=== PATIENT | male | born 1955 | race Caucasian/White ===

== ENCOUNTER 2018-01-22 03:18 | Emergency (ER) | payer MEDICAID, OTHER ==
[2018-01-22] MEDS ORDERED: ASPIRIN CHEW 81 MG TABLET PO STA (03:28)
--- NOTE | 2018-01-22 03:32 | ED Physician Documentation ---
PD HPI CHEST PAIN - Stated complaint Stated Complaint: CHEST PAIN - Chief complaint Chief Complaint: Cardiac - History obtained from History obtained from: Patient - History of Present Illness Timing - onset: How many hours ago (3.5) Timing - onset during: Rest Timing - details: Abrupt onset, Intermittant Quality: Pressure, Aching Location: Left chest Radiation: Left upper extremity Worsened by: No: Exertion, Inspiration Associated symptoms: No: Shortness of air, Diaphoresis, Feeling faint / dizzy Similar symptoms before: No diagnosis Recently seen: Not recently seen - Additional information Additional information: patient is a 62 year old male with no significant past medical history who is presenting to the emergency department for chest pain. patient states that it started about 3.5 hours ago. Patient states that it started at rest. patient stated that it comes and goes on its own and denies any aggravating or alleviating factors. patient denies any exertional component to his pain. Review of Systems Constitutional: denies: Fever, Chills Eyes: reports: Reviewed and negative Ears: reports: Reviewed and negative Cardiac: reports: Chest pain / pressure. denies: Palpitations, Pedal edema, Calf pain Respiratory: denies: Dyspnea, Cough, Wheezing GI: denies: Nausea, Vomiting : reports: Reviewed and negative Skin: denies: Rash, Lesions Musculoskeletal: reports: Extremity pain. denies: Neck pain, Back pain Neurologic: denies: Near syncope, Syncope, Headache Immunocompromised: denies: Immunocompromised PD PAST MEDICAL HISTORY - Present Medications Home Medications: Ambulatory Orders Medication Instructions Recorded Confirmed Nitroglycerin 0.4 mg SL ONCE PRN #15 tab.subl 01/22/18 - Allergies Allergies/Adverse Reactions: Allergies Allergy/AdvReac Type Severity Reaction Status Date / Time No Known Drug Allergies Allergy Verified 01/22/18 03:26 PD ED PE NORMAL - Vitals Vital signs reviewed: Yes - General General: Alert and oriented X 3, No acute distress - HEENT HEENT: Atraumatic, PERRL - Neck Neck: No JVD - Cardiac Cardiac: RRR - Respiratory Respiratory: No respiratory distress - Abdomen Abdomen: Soft, Non tender, Non distended - Derm Derm: Normal color, Warm and dry, No rash - Extremities Extremities: No deformity, No edema - Neuro Neuro: Alert and oriented X 3, No motor deficit, Normal speech Eye Opening: Spontaneous Motor: Obeys Commands Verbal: Oriented GCS Score: 15 - Psych Psych: Normal mood Results - Vitals Vitals: Vital Signs - 24 hr 01/22/18 01/22/18 01/22/18 03:22 03:26 03:56 Temperature 36.0 C L Heart Rate 69 66 Respiratory 20 18 Rate Blood Pressure 162/106 H 157/101 H Blood Pressure 173/101 H [Left] Blood Pressure 162/106 H [Right] O2 Saturation 97 94 01/22/18 01/22/18 04:07 05:32 Temperature Heart Rate 74 55 L Respiratory 18 14 Rate Blood Pressure 130/95 H 119/86 H Blood Pressure [Left] Blood Pressure [Right] O2 Saturation 94 96 Oxygen O2 Source Room air - EKG (time done) 0325 Rate: Rate (enter#) (64) Rhythm: NSR [place]: Normal Intervals: Normal PA QRS: Poor R wave progression Compare to prior EKG: Old EKG unavailable 0516 Rate: Rate (enter#) (56) Rhythm: NSR [place]: Normal QRS: Poor R wave progression Compare to prior EKG: Unchanged from prior EKG - Labs Labs: Laboratory Tests 01/22/18 01/22/18 01/22/18 03:30 03:30 03:30 WBC 5.6 RBC 4.87 Hgb 15.0 Hct 42.5 MCV 87.3 MCH 30.9 MCHC 35.4 RDW 12.8 Plt Count 199 MPV 8.3 Neut # 3.1 Lymph # 1.7 Cassia # 0.5 Eos # 0.2 Baso # 0.0 Absolute Nucleated RBC 0.00 Nucleated RBC % 0.0 Sodium 137 Potassium 3.7 Chloride 103 Carbon Dioxide 25 Anion Gap 9.0 BUN 16 Creatinine 1.0 Estimated GFR (MDRD) 75 L Glucose 128 H Calcium 9.4 Total Bilirubin 0.8 AST 30 ALT 41 Alkaline Phosphatase 61 Troponin I < 0.04 B-Natriuretic Peptide Total Protein 8.0 Albumin 4.6 Globulin 3.4 Albumin/Globulin Ratio 1.4 Lipase 19 L 01/22/18 01/22/18 03:30 05:10 WBC RBC Hgb Hct MCV MCH MCHC RDW Plt Count MPV Neut # Lymph # Cassia # Eos # Baso # Absolute Nucleated RBC Nucleated RBC % Sodium Potassium Chloride Carbon Dioxide Anion Gap BUN Creatinine Estimated GFR (MDRD) Glucose Calcium Total Bilirubin AST ALT Alkaline Phosphatase Troponin I < 0.04 B-Natriuretic Peptide 6 Total Protein Albumin Globulin Albumin/Globulin Ratio Lipase - Rads (name of study) chest x-ray Radiology: Final report received (normal) PD MEDICAL DECISION MAKING - ED course Complexity details: reviewed old records, reviewed results, re-evaluated patient , considered differential, d/w patient ED course: Patient was seen and examined at bedside. ekg was performed and was normal sinus rhythm. IV access gained and labs were drawn. patient's original troponin was 0. Patient was treated with aspirin and one nitro. Patient chest x-ray showed no acute abnormalities. Patient's htn improved to 122/88. Patient 's repeat troponin and ekg remained stable. Patient's HEART score was 2. Patient required no further inpatient work up and was stable for discharge with outpatient follow up. Departure - Departure Disposition: 01 Home, Self Care Clinical Impression: Atypical chest pain Condition: Good Instructions: ED Chest Pain Atypical Unkn Cause Follow-Up: primary,care provider [Other] - Within 3 Days Prescriptions: Nitroglycerin 0.4 mg SL ONCE PRN #15 tab.subl PRN Reason: Blood Pressure Comments: Your diagnostics today were within normal limits. there is no significant abnormality on you ekg, blood work and chest x-ray. while these tests are good for ruling out an acute heart attack it is still only a snap shot in time. You will need to follow up with your doctor for an echo cardiogram and a stress test. You may return to the emergency department at any time for new, worsening or uncontrollable symptoms.
[2018-01-22 03:44] LABS: BASOPHILS % (AUTO) 0.6 %; EOSINOPHILS # (AUTO) 0.2 10^3/uL (0.0-0.7); EOSINOPHILS % (AUTO) 2.7 %; LYMPHOCYTES # (AUTO) 1.7 10^3/uL (1.5-3.5); LYMPHOCYTES % (AUTO) 31.1 %; MEAN CORPUSCULAR HEMOGLOBIN 30.9 pg (27.0-31.0); MEAN CORPUSCULAR HGB CONC 35.4 g/dL (32.0-36.0); MEAN CORPUSCULAR VOLUME 87.3 fL (80.0-94.0); MEAN PLATELET VOLUME 8.3 fL (7.4-11.4); MONOCYTES # (AUTO) 0.5 10^3/uL (0.0-1.0); MONOCYTES % (AUTO) 9.8 %; NEUTROPHILS # (AUTO) 3.1 10^3/uL (1.5-6.6); NEUTROPHILS % (AUTO) 55.8 %; PLT - PLATELET COUNT 199 10^3/uL (130-450); RED BLOOD COUNT 4.87 10^6/uL (4.70-6.10); RED CELL DISTRIBUTION WIDTH 12.8 % (12.0-15.0); WHITE BLOOD COUNT 5.6 x10^3/uL (4.8-10.8)
[2018-01-22 03:55] LABS: ALBUMIN 4.6 g/dL (3.2-5.5); ALBUMIN/GLOBULIN RATIO 1.4 (1.0-2.2); BILIRUBIN,TOTAL 0.8 mg/dL (0.2-1.0); CALCIUM 9.4 mg/dL (8.5-10.3)
[2018-01-22] MEDS ORDERED: NITROGLYCERIN SL 0.4 MG TABLET SL STA (03:56)
--- NOTE | 2018-01-22 04:05 | XRAY Report ---
EXAM: CHEST RADIOGRAPHY EXAM DATE: 01/22/2018 03:42 AM. CLINICAL HISTORY: Chest pain. COMPARISON: 05/24/2012. TECHNIQUE: 1 view. FINDINGS: Lungs/Pleura: No focal opacities evident. No pleural effusion. No pneumothorax. Mediastinum: Within exam limitations, the cardiomediastinal contour is normal. Other: None. IMPRESSION: Normal single view chest. [facility] Referring Provider Line: [phone] SITE ID: [id number]
[2018-01-22 05:33] VITALS: BP 119/86
== END 2018-01-22 05:44 | disposition home or self-care (01) ==
LOC: ED 03:18
DX: R07.89 Other chest pain (principal); I10 Essential (primary) hypertension
CPT/HCPCS: 36415; 71045; 80053; 83690; 83880; 84484; 85025; 93005; 99283; 99284; A9270

== ENCOUNTER 2019-09-02 08:04 | Day surgery (SDC) | payer MEDICARE, BC ==
[2019-09-02] MEDS ORDERED: LACTATED RINGERS 1,000 ML IV ONE (08:13)
[2019-09-02] MEDS ORDERED: MIDAZOLAM 2 MG/2 ML VIAL IVP ONE (09:11)
[2019-09-02] MEDS ORDERED: fentaNYL 250 MCG/5 ML VIAL IVP ONE (09:11)
[2019-09-02 10:20] VITALS: BP 120/78
== END 2019-09-02 08:05 | disposition home or self-care (01) ==
LOC: SDS 08:04
PROVIDERS: ATTEND Surgery
PROC: 0DJD8ZZ Inspection of Lower Intestinal Tract, Via Natural or Artificial Opening Endoscopic (ICD-10-PCS; principal; 2019-09-02 09:00)
DX: K64.8 Other hemorrhoids (principal); Z85.46 Personal history of malignant neoplasm of prostate
CPT/HCPCS: 45378; J3010; J7120

== ENCOUNTER 2022-04-04 10:49 | Outpatient (CLI) | payer MEDICARE, BC | END 2022-04-04 10:50 | disposition home or self-care (01) | LOC: LAB.S 10:49 | PROVIDERS: ATTEND Physician Assistant Medical | DX: C61 Malignant neoplasm of prostate (principal) | CPT/HCPCS: 36415; 84153 ==

== ENCOUNTER 2022-10-19 09:50 | Outpatient (CLI) | payer MEDICARE, BC ==
[2022-10-19 15:35] LABS: ALBUMIN/GLOBULIN RATIO 1.3 (1.0-2.2); ALKALINE PHOSPHATASE 57 IU/L (42-121); ALT ALANINE AMINOTRANSFERASE 26 IU/L (10-60); AST ASPARTATE AMINOTRANSFERASE 26 IU/L (10-42); BILIRUBIN,TOTAL 0.6 mg/dL (0.2-1.0); BUN - BLOOD UREA NITROGEN 19 mg/dL (6-20); CALCIUM 9.3 mg/dL (8.5-10.3); CARBON DIOXIDE - CO2 27 mmol/L (21-32); CHLORIDE 107 mmol/L (101-111); CHOL/HDL RATIO 5.6 (<5.0); CHOLESTEROL 252 mg/dL; GFR - MDRD 74 (>89); GLUCOSE 106 mg/dL (70-100); HDL CHOLESTEROL 45 mg/dL; LDL CHOLESTEROL,CALCULATED 164 mg/dL; LDL/HDL RATIO 3.6 (<3.6); SODIUM 140 mmol/L (135-145); TOTAL PROTEIN 7.2 g/dL (6.7-8.2); TRIGLYCERIDES 216 mg/dL; VLDL CHOLESTEROL 43 mg/dL
[2022-10-19 20:26] LABS: ESTIMATED AVERAGE GLUCOSE 114 mg/dL (70-100); HEMOGLOBIN A1c% 5.6 % (4.27-6.07)
[2022-10-20 08:10] LABS: HCV AB <0.1 s/co ratio (0.0-0.9)
== END 2022-10-19 09:51 | disposition home or self-care (01) ==
LOC: LAB.S 09:50
PROVIDERS: ATTEND Physician Assistant
DX: E78.5 Hyperlipidemia, unspecified (principal); R73.01 Impaired fasting glucose; Z11.59 Encounter for screening for other viral diseases; Z85.46 Personal history of malignant neoplasm of prostate
CPT/HCPCS: 36415; 80053; 80061; 83036; 83721; 84153; 86803